=== PATIENT | female | born 1950 | race Caucasian/White ===

== ENCOUNTER 2020-07-29 06:09 | Day surgery (SDC) | payer MEDICARE, OTHER ==
[~2020-07-29 06:09] MED LIST: Acetaminophen 325 MG Tab PO SCH; Lactated Ringers 1,000 ML IV SCH; Lidocaine 1%/Sod Bicarbonate in NS 8.4% 1 ML Syringe IDERM PRN; Pregabalin 25 MG Cap PO SCH; Sodium Chloride 0.9% 10 ML Syringe FLUSH PRN; oxyCODONE ER 10 MG TAB.ER PO SCH
[2020-07-29] MEDS ORDERED: Propofol 200 MG/20 ML SDV ONE (06:56)
[2020-07-29] MEDS ORDERED: Midazolam 1 MG/ML 2 ML SDV ONE ×2 (06:56→07:06)
[2020-07-29] MEDS ORDERED: Ketamine 500 mg/10 ML MDV ONE (06:56)
[2020-07-29] MEDS ORDERED: fentaNYL 100 MCG/2 ML SDV ONE (06:56)
[2020-07-29] MEDS ORDERED: ceFAZolin 1 GM Vial ONE (07:00)
[2020-07-29] MEDS ORDERED: Lidocaine 1% 4 ML ONE (07:35)
[2020-07-29] MEDS ORDERED: Ketorolac 15 MG/ML SDV ONE (07:42)
[2020-07-29] MEDS ORDERED: Ondansetron 4 MG/2 ML SDV ONE (07:42)
[2020-07-29] MEDS ORDERED: Dexamethasone 4 MG/ML 5 ML MDV ONE (07:42)
[2020-07-29] MEDS: Morphine 8 MG, EPINEPHrine 0.3 MG, Cefuroxime 750 MG, Ketorolac 30 MG, Sodium Chloride ... PRN ×10 (08:07→08:41)
[2020-07-29] MEDS: Vancomycin 1 GM SDV ONE ×2 (08:07→08:51)
[2020-07-29] MEDS ORDERED: Lactated Ringers 1,000 ML ONE (08:08)
[2020-07-29] MEDS ORDERED: Ondansetron 4 MG/2 ML SDV IVPUSH PRN (08:27)
[2020-07-29] MEDS ORDERED: fentaNYL 100 MCG/2 ML SDV IVPUSH PRN (08:27)
[2020-07-29] MEDS ORDERED: HYDROmorphone 0.5 MG/0.5 ML Syringe IVPUSH PRN (08:27)
--- NOTE | 2020-07-29 08:33 | PCM.PREANE ---
Preanesthetic Assessment - Procedure Proposed Procedure: Right Total Knee Arthroplasty - Anesthesia/Transfusion/Family Hx Anesthesia History: Prior Anesthesia Without Reaction (Nausea sometimes, responds well to IV antinausea medicine.) Family History of Anesthesia Reaction: No - Review of Systems General: No Symptoms Pulmonary: No Symptoms Cardiovascular: No Symptoms Gastrointestinal: Other (GERD, Hiata Hernia, History of Lap banding. ) Neurological: Pre-Existing Deficit (Chronic soreness in lower back, muscle tightness, L3-4 diskectomy with fat pad placement in 1985 large incision.) Other: Reports: None (Obesity BMI 42), Thyroid Problems (Hypothyroidisim), Anxiety - Physical Assessment NPO Status Date: 07/28/20 NPO Status Time: 22:00 Vital Signs: Last Vital Signs Temp 36.1 C 07/29/20 06:30 Pulse 84 07/29/20 06:30 Resp 95 H 07/29/20 06:30 BP 140/81 07/29/20 06:30 Pulse Ox Height: 1.57 m Weight: 103.873 kg ASA Class: 3 Mental Status: Alert & Oriented x3 Airway Class: Mallampati = 3 Dentition: Reports: Caries Thyro-Mental Finger Breadths: 2 Mouth Opening Finger Breadths: 3 ROM/Head Extension: Full (Thick neck circumference.) Lungs: Clear to Auscultation, Normal Respiratory Effort Cardiovascular: Regular Rate, Regular Rhythm - Imaging/EKG Impressions: SR at 88bpm - Allergies Allergies/Adverse Reactions: Allergies Allergy/AdvReac Type Severity Reaction Status Date / Time adhesive tape Allergy Rash Verified 07/29/20 07:28 alprazolam [From Xanax] AdvReac ineffective Verified 07/29/20 07:28 cephalexin [From Keflex] AdvReac Anxiety Verified 07/29/20 07:28 codeine AdvReac Anxiety Verified 07/29/20 07:28 loratadine [From Claritin] AdvReac Hypertensio Verified 07/29/20 07:28 n moxifloxacin [From Avelox] AdvReac Nausea and Verified 07/29/20 07:28 Vomiting sulfamethoxazole AdvReac Anxiety Verified 07/29/20 07:28 [From Bactrim] trimethoprim [From Bactrim] AdvReac Anxiety Verified 07/29/20 07:28 - Anesthesia Plan Pre-Op Medication Ordered: Anxiolytic Med Last Dose Date: 07/29/20 Med Last Dose Time: 05:20 - Acknowledgements Anesthesia Type Planned: Spinal, Regional Block (Regional Block in Adductor Canal for post operative pain control. ) Pt an Appropriate Candidate for the Planned Anesthesia: Yes Alternatives and Risks of Anesthesia Discussed w Pt/Guardian: Yes Pt/Guardian Understands and Agrees with Anesthesia Plan: Yes Additional Comments: Roxanne is aware with her large incision from previous back surgery her spinal anesthetic could be challenging to place. She agrees to spinal anesthetic and understands that general anesthesia may be required if unable to place spinal. PreAnesthesia Questionnaire HEENT History: Reports: Allergic Rhinitis, Other (See Below) Other HEENT History: reading glasses Cardiovascular History: Reports: High Cholesterol, Hypertension Respiratory History: Reports: None Gastrointestinal History: Reports: GERD, Hiatal Hernia Genitourinary History: Reports: None [employer] ATTORNEY History: Reports: Other (See Below) Other OB/BYN History: atrohpic vaginitis, cervical cryotherapy Musculoskeletal History: Reports: Other (See Below) Other Musculoskeletal History: degenerative joint disease, right foot neuroma Neurological History: Reports: Other (See Below) Other Neuro History: lumbar radiculopathy Psychiatric History: Reports: Anxiety, Depression Endocrine/Metabolic History: Reports: Hypothyroidism, Other (See Below) Other Endocrine/Metabolic History: graves disease Hematologic History: Reports: None Immunologic History: Reports: None Oncologic (Cancer) History: Reports: None Dermatologic History: Reports: None - Past Surgical History Head Surgeries/Procedures: Reports: None HEENT Surgical History: Reports: Cataract Surgery Cardiovascular Surgical History: Reports: None Respiratory Surgical History: Reports: None GI Surgical History: Reports: Cholecystectomy, Colonoscopy Female Surgical History: Reports: D&C, Tubal Ligation Male Surgical History: Reports: None Endocrine Surgical History: Reports: Other (See Below) Other Endocrine Surgeries/Procedures: partial thyroidectomy Neurological Surgical History: Reports: Discectomy Musculoskeletal Surgical History: Reports: Other (See Below) Other Musculoskeletal Surgeries/Procedures:: right bunionectomy Oncologic Surgical History: Reports: None Dermatological Surgical History: Reports: None - SUBSTANCE USE Tobacco Use Status *Q: Never Tobacco User Recreational Drug Use History: No - HOME MEDS Home Medications: Home Meds Acetaminophen [Tylenol Arthritis] 650 mg PO Q4HR PRN 07/26/20 [History] Cetirizine [ZyrTEC] 10 mg PO DAILY PRN 07/26/20 [History] Cholecalciferol (Vitamin D3) [Vitamin D3] 5,000 unit PO DAILY 07/26/20 [History] DULoxetine [Cymbalta] 20 mg PO DAILY 07/26/20 [History] Lactobacillus Combination No.4 [Probiotic] 1 cap PO DAILY 07/26/20 [History] Levothyroxine 112 mcg PO DAILY 07/26/20 [History] Losartan [Cozaar] 100 mg PO DAILY 07/26/20 [History] Magnesium Oxide 250 mg PO DAILY 07/26/20 [History] Metoprolol Succinate 25 mg PO DAILY 07/26/20 [History] Triamcinolone Acetonide [Nasacort] 1 dose NASBOTH ASDIRECTED PRN 07/26/20 [History] Ubidecarenone [Coq-10] 100 mg PO DAILY 07/26/20 [History] amLODIPine Besylate [Amlodipine Besylate] 10 mg PO DAILY 07/26/20 [History] atorvaSTATin Calcium [Atorvastatin Calcium] 20 mg PO DAILY 07/26/20 [History] estradioL [Estrace 0.01% Vaginal Crm] 1 dose VAG ASDIRECTED 07/26/20 [History] hydrOXYzine HCL [hydrOXYzine] 25 mg PO BID PRN 07/26/20 [History] hydroCHLOROthiazide [Hydrochlorothiazide] 12.5 mg PO DAILY 07/26/20 [History] Apixaban [Eliquis] 2.5 mg PO BID #28 tablet 07/27/20 [Rx] Aspirin [Aspirin EC] 325 mg PO BID #60 tab 07/27/20 [Rx] Cyclobenzaprine [Flexeril] 10 mg PO BID PRN #20 tab 07/27/20 [Rx] Pantoprazole Sodium [Protonix] 40 mg PO BID #60 07/27/20 [Rx] oxyCODONE 5 - 10 mg PO Q4H PRN #40 tab 07/27/20 [Rx] - CURRENT (IN HOUSE) MEDS Current Meds: Current Medications Acetaminophen (Acetaminophen 325 Mg Tab) 975 mg PO ONETIME DERIAN Stop: 07/29/20 18:00 Last Admin: 07/29/20 06:47 Dose: 975 mg Documented by: Morphine Sulfate 8 mg/Epinephrine HCl 0.3 mg/Cefuroxime Sodium 750 mg/Ketorolac Tromethamine 30 mg/Sodium Chloride 7.9 ml 0 mg .XX ASDIRECTED PRN PRN Reason: Pain Stop: 07/29/20 13:00 Last Admin: 07/29/20 08:07 Dose: 788.3 mg Documented by: Lactated Ringer's (Ringers, Lactated) 1,000 mls @ 125 mls/hr IV ASDIRECTED DERIAN Stop: 07/29/20 23:00 Last Admin: 07/29/20 06:50 Dose: 125 mls/hr Documented by: Lidocaine/Sodium Bicarbonate (Lidocaine 1%/Sod Bicarbonate In Ns 8.4% 1 Ml Syringe) 0.25 ml IDERM ONETIME PRN PRN Reason: Prior to IV Start Stop: 07/29/20 18:00 Last Admin: 07/29/20 06:50 Dose: 0.25 ml Documented by: Oxycodone HCl (Oxycodone Er 10 Mg Tab.Er) 10 mg PO ONETIME DERIAN Stop: 07/29/20 16:00 Last Admin: 07/29/20 06:47 Dose: 10 mg Documented by: Pregabalin (Pregabalin 25 Mg Cap) 50 mg PO ONETIME DERIAN Stop: 07/29/20 16:00 Last Admin: 07/29/20 06:47 Dose: 50 mg Documented by: Sodium Chloride (Sodium Chloride 0.9% 10 Ml Syringe) 10 ml FLUSH ASDIRECTED PRN PRN Reason: Keep Vein Open Stop: 07/29/20 18:00 Discontinued Medications Cefazolin Sodium (Cefazolin 1 Gm Vial) Confirm Administered Dose 2 gm .ROUTE .STK-MED ONE Stop: 07/29/20 07:01 Dexamethasone (Dexamethasone 4 Mg/Ml 5 Ml Mdv) Confirm Administered Dose 20 mg .ROUTE .STK-MED ONE Stop: 07/29/20 07:43 Fentanyl (Fentanyl 100 Mcg/2 Ml Sdv) Confirm Administered Dose 100 mcg .ROUTE .STK-MED ONE Stop: 07/29/20 06:57 Lidocaine HCl (Xylocaine-Mpf 1%) Confirm Administered Dose 4 mls @ as directed .ROUTE .STK-MED ONE Stop: 07/29/20 07:36 Lactated Ringer's (Ringers, Lactated) Confirm Administered Dose 1,000 mls @ as directed .ROUTE .STK-MED ONE Stop: 07/29/20 08:09 Ketamine HCl (Ketamine 500 Mg/10 Ml Mdv) Confirm Administered Dose 500 mg .ROUTE .STK-MED ONE Stop: 07/29/20 06:57 Ketorolac Tromethamine (Ketorolac 15 Mg/Ml Sdv) Confirm Administered Dose 15 mg .ROUTE .STK-MED ONE Stop: 07/29/20 07:43 Lidocaine HCl (Lidocaine 1% 5 Ml Sdv) Confirm Administered Dose 5 ml .ROUTE .STK-MED ONE Stop: 07/29/20 07:40 Midazolam HCl (Midazolam 1 Mg/Ml 2 Ml Sdv) Confirm Administered Dose 2 mg .ROUTE .STK-MED ONE Stop: 07/29/20 06:57 Midazolam HCl (Midazolam 1 Mg/Ml 2 Ml Sdv) Confirm Administered Dose 2 mg .ROUTE .STK-MED ONE Stop: 07/29/20 07:07 Ondansetron HCl (Ondansetron 4 Mg/2 Ml Sdv) Confirm Administered Dose 4 mg .ROUTE .STK-MED ONE Stop: 07/29/20 07:43 Propofol (Propofol 200 Mg/20 Ml Sdv) Confirm Administered Dose 600 mg .ROUTE .STK-MED ONE Stop: 07/29/20 06:57 Tranexamic Acid (Tranexamic Acid 1,000 Mg/10 Ml Amp) Confirm Administered Dose 1,000 mg .ROUTE .STK-MED ONE Stop: 07/29/20 06:32 Last Admin: 07/29/20 08:08 Dose: 1,000 mg Documented by: Vancomycin HCl (Vancomycin 1 Gm Sdv) Confirm Administered Dose 1 gm .ROUTE .STK- MED ONE Stop: 07/29/20 06:32 Last Admin: 07/29/20 08:07 Dose: 1 gm Documented by:
[2020-07-29] MEDS ORDERED: Ropivacaine 0.5% 5 MG/ML 30 ML SDV ONE (08:45)
--- NOTE | 2020-07-29 09:24 | PCM.POSTAN ---
POST ANESTHESIA ASSESSMENT - MENTAL STATUS Mental Status: Other (Drowsy) - VITAL SIGNS Vital Signs: Last Vital Signs Temp 36.1 C 07/29/20 06:30 Pulse 84 07/29/20 06:30 Resp 95 H 07/29/20 06:30 BP 140/81 07/29/20 06:30 Pulse Ox 0916 104/82 87 14 93% 97.4F - RESPIRATORY Respiratory Status: Respiratory Rate WNL, Airway Patent, O2 Saturation Stable - CARDIOVASCULAR CV Status: Pulse Rate WNL, Blood Pressure Stable - GASTROINTESTINAL GI Status: No Symptoms - PAIN Pain Score: 0 - POST OP HYDRATION Hydration Status: Adequate & Stable
--- NOTE | 2020-07-29 09:50 | PCM.SN.2 ---
- Free Text/Narrative Note: Right selective femoral nerve block at the adductor canal for post-procedure pain control under US guidance requested by Dr. Landrum. Date: 07/29/20 Time Out: 928 Start:929 End: 933 Chart reviewed. Consent signed. Questions answered. Appropriate monitors applied. Time out performed. Right mid-shaft femur identified with ultrasound, scanning medially of femur, the femoral artery in the adductor canal visualized, and the femoral nerve located laterally to the artery. The skin was prepped lateral to the ultrasound probe with chlorahexadine times two. The 21ga 4 insulated block needle was inserted under direct ultrasound guidance into the adductor canal. 25mL of 0.5% ropivacaine with 1:200,000 epinephrine was injected circumferentially around the nerve with intermittent negative aspiration noted. Patient tolerated the procedure well. Sterile technique noted along with sterile gloves, mask, and sterile probe cover. See picture on progress note and vital signs on nurses notes. Block completed in PACU. Rafa Arnold CRNA
[2020-07-29] MEDS ORDERED: oxyCODONE 5 MG Tab PO ONE (11:00)
--- NOTE | 2020-07-29 11:32 | CR ---
Right knee: AP and lateral views of the right knee were obtained. Comparison: Prior right knee CT study of 07/19/20. Knee prosthesis is seen as well as patellar prosthesis. Components are aligned. Underlying bony structures are intact. Soft tissue air is noted. Impression: 1. Satisfactory postop radiographic appearance of recently placed right knee prosthesis. Diagnostic code #2
--- NOTE | 2020-07-29 11:59 | PCM.OPNOTE ---
- General Post-Op/Procedure Note Date of Surgery/Procedure: 07/29/20 Operative Procedure(s): right total knee arthroplasty Pre Op Diagnosis: right knee osteoarthrosis Post-Op Diagnosis: Same Anesthesia Technique: Local, MAC, Spinal Primary Surgeon: Antonio Landrum Anesthesia Provider: Kassidy Arnold Production Utility Worker: Nati Perez Production Utility Worker: Isabella Dee EBKarina in mLs: 500 Complications: None Condition: Good Free Text/Narrative:: / 9mm 29x9
--- NOTE | 2020-07-29 12:13 | PCM48HPAN ---
Post Anesthesia Note - EVALUATION WITHIN 48HRS OF ANESTHETIC Vital Signs in Normal Range: Yes Patient Participated in Evaluation: Yes Respiratory Function Stable: Yes Airway Patent: Yes Cardiovascular Function Stable: Yes Hydration Status Stable: Yes Pain Control Satisfactory: Yes Nausea and Vomiting Control Satisfactory: Yes Mental Status Recovered: Yes Vital Signs: Last Vital Signs Temp 36.1 C 07/29/20 10:50 Pulse 73 07/29/20 11:50 Resp 16 07/29/20 11:50 BP 120/68 07/29/20 11:50 Pulse Ox 98 07/29/20 11:50
--- NOTE | 2020-08-09 10:15 | OR ---
DATE OF OPERATION: 07/29/2020 SURGEON: Antonio Landrum MD OPERATION PERFORMED: Right total knee arthroplasty with Vitor robotic assist. PREOPERATIVE DIAGNOSIS: Right knee osteoarthrosis. POSTOPERATIVE DIAGNOSIS: Right knee osteoarthrosis. ANESTHESIA: Local MAC with spinal. ANESTHESIA PROVIDER: María Elena Lo. ASSISTANTS: Nati Perez PA-C and Isabella Dee LPN ESTIMATED BLOOD LOSS: 500 mL. COMPLICATIONS: None. CONDITION: Stable. IMPLANTS: 1. Jefferson size 3 press-fit CR femur. 2. Cyndi size 3 press-fit tibial baseplate. 3. Cyndi size 3, 9 mm CS polyethylene insert. 4. Jefferson size 29 x 9 mm press-fit patella. DESCRIPTION OF PROCEDURE: The patient was identified in the preoperative holding area where proper site was marked and identified by the surgeon. The patient was taken back to the operative theater where after adequate anesthesia, the patient's right lower extremity had a nonsterile tourniquet applied and then sterilely prepped and draped in the usual sterile fashion. OR time-out was performed. The patient received 2 g of IV Ancef. The leg ayoub was then applied to the right lower extremity. Right lower extremity was exsanguinated. Tourniquet was insufflated to 250 mmHg. A standard anterior incision was made. Medial parapatellar arthrotomy was created. Deep fibers of the MCL were raised and anterior fat pad was resected. Attention was turned to the patella. Patella measured a 21, resected to a 13 for a 29 x 9 mm patella. Drill holes were then drilled and found to be adequate. Attention was turned to the femur. Two 4-0 Schanz pins were placed intra-incisionally into the femur for the Unyqeo robotic array for the femur. Checkpoints were then placed on the femur and the tibia, and then 2 pins were placed on the tibia 3 fingerbreadths below the tibial tubercle for the tibial array. Once this was completed, hip center rotation was obtained as well as marking in the medial and lateral malleoli with the Cyndi Vitor robotic assist. At this time, 40 points were obtained off the femur and the tibia, and a Cyndi Vitor robotic plan was made for this patient with 18 mm gaps in both flexion and extension. At this time, Unyqeo robotic arm was brought in and a straight saw blade was then used for the tibial cut, the anterior femoral cut, the anterior chamfer cut, and the posterior femoral cut. All bony fragments were removed. The saw blades were switched out and the distal femoral cut as well as posterior chamfer cut were completed at this time. All bony fragments were removed. Medial and lateral meniscus were resected. Posterior osteophytes were removed. Size 3 trial base plate was placed on the tibia as well as the femur, and a 9 mm trial poly was placed. The patient's knee was brought into full extension and flexion and was found to be stable with no instability and good flexion extension gaps with no signs of liftoff using the [employer] [facility] robotic array. At this time, pins were removed out of the femur and the tibia, and the arrays were removed as well as the checkpoints. The implants were opened on the back table. The femoral drill holes were drilled as well as the tibia stamped and drilled in the proper rotation. Trial implants were all removed. Size 3 tibia was then impacted into place, size 3 femur was then impacted into place, 9 mm CS polyethylene insert was impacted into place, and the patient's knee was brought into full extension. The patient's patella was then press-fit into place at that time. At this time, the tourniquet was deflated. All bleeders were cauterized. 1 L pulse lavage irrigation with Ancef was irrigated through the knee along with 400 mL of Irrisept irrigation. Periarticular injection was completed. Topical tranexamic acid and vancomycin powder were placed anterior incisionally. A #2 barbed suture was used for closure of the medial parapatellar arthrotomy. 2-0 Vicryl and Stratafix were used for subcutaneous closure, Prineo was used for skin closure. The patient had a sterile soft dressing applied and was sent to the PACU in stable condition. MMBEAR /[id number]
== END 2020-07-29 13:06 | disposition home or self-care (01) ==
LOC: JD.SDS 06:09
PROVIDERS: ATTEND Orthopaedic Surgery
DX: M17.11 Unilateral primary osteoarthritis, right knee (principal); E03.9 Hypothyroidism, unspecified; I10 Essential (primary) hypertension; K21.9 Gastro-esophageal reflux disease without esophagitis; E78.00 Pure hypercholesterolemia, unspecified; Z01.812 Encounter for preprocedural laboratory examination; Z20.822 Contact with and (suspected) exposure to COVID-19; Z88.8 Allergy status to other drugs, medicaments and biological substances; Z88.5 Allergy status to narcotic agent; Z88.1 Allergy status to other antibiotic agents; Z98.890 Other specified postprocedural states; Z79.899 Other long term (current) drug therapy; Z79.890 Hormone replacement therapy
CPT/HCPCS: 27447; 73560; 97110; 97116; 97161; 97165; A9270; C1713; C1776; J0171; J0690; J0697; J1100; J1885; J2250; J2270; J2405; J2704; J2795; J3010; J3370; J7120; 01402; 64450; 76942